=== PATIENT | female | born 1985 | race Caucasian/White ===

== ENCOUNTER 2019-07-14 00:45 | Emergency (ER) | payer OTHER ==
[2019-07-14] MEDS ORDERED: PROPARACAINE 0.5% OPHTH DROPS 15 ML LEFTEYE STA (02:22)
[2019-07-14] MEDS ORDERED: ERYTHROMYCIN OPHTH OINT 1 GM TUBE RIGHTEYE STA (02:40)
--- NOTE | 2019-07-14 02:43 | ED Physician Documentation ---
PD HPI OPHTHO - Stated complaint Stated Complaint: EYE PX - Chief complaint Chief Complaint: Heent - History obtained from History obtained from: Patient - History of Present Illness Timing - onset: Today Timing - details: Abrupt onset Location: Right Quality / character: Burning, Sharp Associated symptoms: Redness, Tearing, Discharge, Photophobia - Additional information Additional information: 33 YEAR OLD FEMALE WHO WAS USING A TWEEZER ON HER RIGHT EYEBROW WHEN SOMEONE BUMPED INTO HER AND SHE STARTED EXPERIENCING PAIN, FOREIGN BODY SENSATION AND WATERY DRAINAGE. THIS OCCURRED AT AROUND NOON TIME TODAY AND SYMPTOMS PERSISTED. SHE REPORTED OF BLURRY VISION. SHE DENIES OTHER ASSOCIATED SYMPTOMS. SHE DOES NOT WEAR CONTACT LENSES Review of Systems Constitutional: denies: Fever, Chills Eyes: reports: Discharge, Irritation. 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 07/14/19 Ophthalmic Ointment] - Allergies Allergies/Adverse Reactions: Allergies Allergy/AdvReac Type Severity Reaction Status Date / Time penicillin G procaine Allergy Severe Hives Verified 11/22/12 22:57 - Social History Does the pt smoke?: Yes Smoking Status: Current every day smoker Does the pt drink ETOH?: No Does the pt have substance abuse?: No - Immunizations Immunizations are current?: Yes PD ED PE NORMAL - Vitals Vital signs reviewed: Yes - General General: Alert and oriented X 3, No acute distress - HEENT HEENT: Moist mucous membranes, Other (A SMALL CORNEAL ABRASION WAS NOTED ON THE RIGHT CORNEAL WITHOUT AFFECTING THE PUPIL. NO HYPHEMA, HYPOPYON. MILD ERYTHEMA OF [place]CTIVA WAS NOTED. ) - Neck Neck: Supple, no meningeal sign - Cardiac Cardiac: RRR - Respiratory Respiratory: No respiratory distress - Derm Derm: Normal color, Warm and dry - Extremities Extremities: No deformity - Neuro Neuro: Alert and oriented X 3 Eye Opening: Spontaneous Motor: Obeys Commands Verbal: Oriented GCS Score: 15 Results - Vitals Vitals: Oxygen O2 Source Room air PD MEDICAL DECISION MAKING - ED course Complexity details: d/w patient ED course: 33 YEAR OLD FEMALE PRESENTS TO THE EMERGENCY DEPARTMENT WITH RIGHT EYE PAIN. VISUAL ACUITY WAS NOTED. PROPARACINE WAS APPLIED AND PATIENT HAD INSTANT RELIEF OF DISCOMFORT. FLUORESCENE STRIP WAS USED AND WOOD'S LAMP EXAM WAS CONSISTENT WITH CORNEAL ABRASION. DIAGNOSIS AND TREATMENT PLAN WERE DISCUSSED. OUTPATIENT FOLLOW UP WITH AN TITLE I DIRECTOR IF SYPMTOMS DO NOT IMPROVE WAS RECOMMENDED. SHE WAS PRESCRIBED ERYTHMYCIN EYE OINTMENT TO USE. STRICT RETURN INSTRUCTIONS WERE GIVEN. SHE EXPRESSED VERBAL UNDERSTANDING. PATIENT WAS DISCHARGED IN STABLE CONDITION. Departure - Departure Disposition: 01 Home, Self Care Clinical Impression: Corneal abrasion, right Condition: Stable Instructions: ED Eye Injury Corneal Abrasion Follow-Up: Inder Rutherford MD [Provider Admit Priv/Credential] - Within 3 Days Prescriptions: Erythromycin Base [Erythromycin Ophthalmic Ointment] 3.5 gm OP QID #3.5 oint...g. Comments: PLEASE FOLLOW UP WITH AN TITLE I DIRECTOR IN 3 DAYS IF SYMPTOMS PERSIST OR WORSEN. Discharge Date/Time: 07/14/19 02:56
[2019-07-14 02:56] VITALS: BP 122/84
== END 2019-07-14 02:56 | disposition home or self-care (01) ==
LOC: ED 00:45
DX: S05.01XA Injury of conjunctiva and corneal abrasion without foreign body, right eye, initial encounter (principal); W22.8XXA Striking against or struck by other objects, initial encounter; Y93.E8 Activity, other personal hygiene; F17.200 Nicotine dependence, unspecified, uncomplicated
CPT/HCPCS: 99282; 99284; J3490

== ENCOUNTER 2022-07-08 14:27 | Emergency (ER) | payer OTHER ==
--- NOTE | 2022-07-08 15:35 | XRAY Report ---
PROCEDURE: Hand 3 View LT INDICATIONS: Trauma TECHNIQUE: 3 views of the hand(s) acquired. COMPARISON: None FINDINGS: Bones: No fractures or dislocations. No suspicious bony lesions. Soft tissues: No suspicious soft tissue calcifications. IMPRESSION: No acute plain film abnormality is seen. Reviewed by: Daniel Grewal MD on 07/08/2022 2:33 PM [place] Approved by: Daniel Grewal MD on 07/08/2022 2:33 PM [facility] Station ID: [id number]
--- NOTE | 2022-07-08 15:46 | ED Physician Documentation ---
PD HPI UPPER EXT INJURY - Stated complaint Stated Complaint: L THUMB INJ - Chief complaint Chief Complaint: Trauma Ext - History obtained from History obtained from: Patient - History of Present Illness Location: Left, Other (thumb) Timing - onset: Last night Pain level max: 7 Pain level now: 1 Improved by: Rest Worsened by: Moving, Palpating Associated symptoms: Swelling, Discolored (bruising). No: Weakness, Numbness, Tingling Contributing factors: No: Anticoagulated, Prior ortho surgery - Additonal information Additional information: Patient states that last night she accidentally slammed her left thumb in the car door. This went across the proximal phalanx of the left thumb. Increased swelling and pain today. Worse with movement, better with rest. No numbness or tingling. Patient is right-handed. 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 07/14/19 Ophthalmic Ointment] - Allergies Allergies/Adverse Reactions: Allergies Allergy/AdvReac Type Severity Reaction Status Date / Time penicillin G procaine Allergy Severe Hives Verified 07/08/22 15:02 - Social History Does the pt smoke?: Yes Smoking Status: Current every day smoker Does the pt drink ETOH?: No Does the pt have substance abuse?: No - Immunizations Immunizations are current?: Yes PD ED PE NORMAL - Vitals Vital signs reviewed: Yes - General General: Alert and oriented X 3, No acute distress - Derm Derm: Warm and dry - Extremities Extremities: Other (L thumb - swelling and ecchymosis to the prox phalanx. limited ROM 2/2 pain. NVI. no deformity.) - Neuro Neuro: Alert and oriented X 3 Results - Vitals Vitals: Vital Signs - 24 hr 07/08/22 15:00 Temperature 36.9 C Heart Rate 94 Respiratory 16 Rate Blood Pressure 125/77 O2 Saturation 99 Oxygen O2 Source Room air - Rads (name of study) L hand xray Radiology: Final report received, See rad report PD Medical Decision Making - ED course Complexity details: reviewed results, re-evaluated patient, considered differential, d/w patient ED course: 36-year-old female with a left thumb crush injury. No acute findings on x-ray. Limited range of motion secondary to pain. No tenderness over the anatomical snuffbox. We will place in a Velcro thumb spica. We will have her follow-up with her doctor for repeat evaluation 1 week. Patient counseled regarding signs and symptoms for which I believe and urgent re-evaluation would be necessary. Patient with good understanding of and agreement to plan and is comfortable going home at this time This document was made in part using voice recognition software. While efforts are made to proofread this document, sound alike and grammatical errors may occur. Departure - Departure Disposition: 01 Home, Self Care Clinical Impression: Thumb contusion Qualifiers: Encounter type: initial encounter Damage to nail status: without damage Laterality: left Qualified Code(s): S60.012A - Contusion of left thumb without damage to nail, initial encounter Left thumb sprain Qualifiers: Encounter type: initial encounter Sprain of finger site: unspecified site Qualified Code(s): S63.602A - Unspecified sprain of left thumb, initial encounter Condition: Good Instructions: ED Crush Injury Finger No Fx, ED Sprain Finger Follow-Up: APOORVA ONEIL DO [Primary Care Provider] - Within 1 week Comments: Please follow-up with your doctor for further care. Return if you worsen. Your x-ray does not show any acute abnormalities today. Please wear the brace for at least the next 1 week. You can remove it to shower and wash your hands. You can use Motrin or Tylenol as needed for pain.
[2022-07-08 16:13] VITALS: BP 113/74
== END 2022-07-08 16:12 | disposition home or self-care (01) ==
LOC: ED 14:27
DX: S60.012A Contusion of left thumb without damage to nail, initial encounter (principal); S63.602A Unspecified sprain of left thumb, initial encounter; W23.1XXA Caught, crushed, jammed, or pinched between stationary objects, initial encounter; Y92.810 Car as the place of occurrence of the external cause; F17.200 Nicotine dependence, unspecified, uncomplicated
CPT/HCPCS: 99283